=== PATIENT | male | born 1970 | race Caucasian/White ===

== ENCOUNTER → 2021-07-19 08:21 | Outpatient (CLI) | payer OTHER, SELFPAY ==
[2021-07-19 13:44] LABS: COVID19 -Nasal RAPID Negative (Negative)
== END ==
PROVIDERS: PCP Internal Medicine; Visit Provider Nurse Practitioner Family
DX: Z20.822 Contact with and (suspected) exposure to COVID-19 (principal); R05.9 Cough, unspecified
CPT/HCPCS: 87635

== ENCOUNTER → 2023-04-23 07:55 | Outpatient (CLI) | payer OTHER, SELFPAY ==
[2023-04-23 09:59] LABS: Alanine Aminotransferase 40 IU/L (<50); Albumin 4.4 g/dL (3.5-5.0); Albumin Globulin Ratio 1.4 (1.0-2.8); Alkaline Phosphatase 85 U/L (38-126); Aspartate Aminotransferase 30 IU/L (17-59); BUN Creatinine Ratio 12.1 (6-22); Bilirubin Total 0.8 mg/dL (0.2-1.3); Blood Urea Nitrogen 11 mg/dL (9-20); Calcium 9.7 mg/dL (8.4-10.2); Carbon Dioxide 26 mmol/L (22-32); Chloride 102 mmol/L (98-107); Cholesterol 174 mg/dL (140-199); Estimated Glomerular Filt Rate > 60 mL/min (>60); Globulin 3.2 g/dL (1.7-4.1); Glucose 94 mg/dL (70-100); HDL Cholesterol 39 mg/dL (40-60); HEMOLYSIS < 15 (0-50); LDL Cholesterol Calculated 100 mg/dL (<100); Potassium 4.4 mmol/L (3.4-5.1); Sodium 138 mmol/L (137-145); Total Protein 7.6 g/dL (6.3-8.2); Triglycerides 175 mg/dL (35-150)
== END ==
PROVIDERS: PCP Internal Medicine; Referring Provider Internal Medicine; Visit Provider Internal Medicine
DX: Z13.1 Encounter for screening for diabetes mellitus (principal); Z13.220 Encounter for screening for lipoid disorders; Z13.6 Encounter for screening for cardiovascular disorders
CPT/HCPCS: 36415; 80053; 80061

== ENCOUNTER 2023-06-25 08:04 | Day surgery (SDC) | payer OTHER, SELFPAY ==
[2023-06-25] MEDS: LACTATED RINGERS 1,000 ML 42 ML IV (08:48)
[2023-06-25 08:56] VITALS: BP 157/94; PULSE 60; RESP 16; TEMP 36.1; O2SAT 99
--- NOTE | 2023-06-25 09:15 | P.HP_ITS ---
History of Present Illness History of Present Illness Date Patient Seen: 06/25/23 Time Patient Seen: 09:15 Chief [place] [facility] [place]: 52-year-old man here for screening colonoscopy. No prior colonoscopy. No particular abdominal concerns today including new abdominal pain unintentional weight loss. Perhaps a couple of times per year he notices a small amount of blood after wiping. No family history of intestinal malignancy. [facility] Medical History Depression (~2015) Generalized anxiety disorder Surgical History Anesthesia S/P left inguinal hernia repair (~04/2010) Family History Father Cancer Mother Multiple sclerosis Brother Cancer Social History household members: spouse Smoking Status: Never smoker alcohol intake: current Meds Home Medications and Allergies Home Medications Medication Instructions Recorded Confirmed Type escitalopram oxalate 10 mg tablet 15 mg (1.5 x 10 mg) PO DAILY #135 09/13/22 06/25/23 Rx tabs Allergies Allergy/AdvReac Type Severity Reaction Status Date / Time No Known Drug Allergies Allergy Verified 06/25/23 08:35 Exam Vital Signs (past 8 hours): - 06/25/23 08:56 Temperature 97 F L Pulse Rate 60 Respiratory Rate 16 Blood Pressure 157/94 H Pulse Oximetry 99 Oxygen Delivery Method Room Air Oxygen Delivery Method Room Air Narrative Exam Narrative: General adult man alert oriented no acute distress Chest nonlabored respiration Extremities warm well perfused Assessment & Plan Assessment & Plan narrative: The patient requires colorectal screening and colonoscopy is recommended. Te chnical details were discussed. Risks, benefits, alternatives explained. Risks including but not limited to myocardial infarction, aspiration, bleeding, pain, missed lesion, incomplete examination, need for further radiographic studies, colonic perforation, and need for major abdominal surgery were discussed. All questions were answered to their satisfaction, and they are in agreement with this plan.
--- NOTE | 2023-06-25 09:19 | P.OP.COLON_ITS ---
Operative Date/Time/Diagnoses Date of procedure: 06/25/23 Time of procedure: 09:19 Pre-op diagnosis: Colorectal screening Procedure & Clinicians Study performed: Colonoscopy Same procedure as scheduled: Yes Indications: Colorectal screening Surgeon: Jose De Jesus Arrington Procedure Notes Procedure in detail: The history and physical was performed/updated and the patient is ASA class is 2. The procedure was discussed in detail with the patient. Potential risks complications including infection, bleeding, missed diagnosis, perforation, need for surgery, and were explained. Their questions were answered and informed consent was obtained. Patient was brought to the procedure room and placed standard monitoring equipment. The patient's vital signs were monitored continuously throughout the entire procedure. Prior to starting time-out was performed. The patient was placed in the left lateral recumbent position. Procedural sedation was administered by anesthesia. Examination began with a thorough inspection of the perianal area there was no evidence of fissures, fistulae, external hemorrhoids or cutaneous malignancy. The colonoscopy scope was then placed into the anal canal and was advanced to the cecum, which was identified by the ileocecal valve , the appendiceal orifice and the confluence of the taenia. The scope was then slowly withdrawn examining colon thoroughly in all directions, irrigating it of any residual stool. The scope was retroflexed within the rectum The patient tolerated the procedure well. They will be discharged once criteria are met. The prep was of good/excellent quality. The withdrawl time was 7 minutes. FINDINGS * Unremarkable colonoscopy. No masses, polyps, inflammation. * Internal hemorrhoids grade 1 Specimen(s): none sent Impression: Normal colonoscopy Post-procedure Recommendations: Colonoscopy in 10 years and High fiber diet Disposition: same day surgery
[2023-06-25 09:38] VITALS: BP 100/65; PULSE 72; RESP 11; TEMP 36.8; O2SAT 95
[2023-06-25 09:44] VITALS: BP 98/64; PULSE 68; RESP 13; O2SAT 95
[2023-06-25 09:49] VITALS: BP 97/65; PULSE 70; RESP 15; TEMP 36.3; O2SAT 97
[2023-06-25 09:56] VITALS: BP 118/83; PULSE 68; RESP 13; TEMP 36.5; O2SAT 95
== END 2023-06-25 10:11 | disposition home or self-care (01) ==
PROVIDERS: PCP Internal Medicine; Referring Provider Surgery; Visit Provider Surgery
PROC: 0DJD8ZZ Inspection of Lower Intestinal Tract, Via Natural or Artificial Opening Endoscopic (ICD-10-PCS; CPT 45378; principal; 2023-06-25 09:15)
DX: Z12.11 Encounter for screening for malignant neoplasm of colon (principal); K64.0 First degree hemorrhoids
CPT/HCPCS: 45378; J2704

== ENCOUNTER → 2025-06-15 09:19 | Outpatient (CLI) | payer OTHER, SELFPAY ==
--- NOTE | 2025-06-15 09:24 | DI.RAD.S_ITS ---
PROCEDURE: XR LUMBAR SPINE MIN 4V INDICATIONS: BACK PAIN TECHNIQUE: 5 views of the lumbar spine were acquired, including bilateral oblique views. COMPARISON: None. FINDINGS: Bones: 5 nonrib-bearing vertebrae are present. There is normal bony alignment. No vertebral body compression fractures. No suspicious bony lesions. Mild degenerative disc changes throughout the lumbar spine. Mild L3-L4, L4-L5 and L5-S1 facet hypertrophy. Soft tissues: Overlying bowel gas pattern is normal. No suspicious soft tissue calcifications. Oblique images: No pars defects. IMPRESSION: Mild multilevel degenerative disc disease. Mild multilevel facet arthropathy. No fracture. No acute osseous lesion. If symptoms and/or clinical suspicion for pathology persists, evaluation with MRI should be considered for further assessment. Dictated by: Melissa Mobley MD, PhD on 06/15/2025 at 10:16 Approved by: Melissa Mobley MD, PhD on 06/15/2025 at 10:17
== END ==
PROVIDERS: PCP Internal Medicine; Referring Provider Internal Medicine; Visit Provider Physical Medicine & Rehabilitation
DX: M51.369 Other intervertebral disc degeneration, lumbar region without mention of lumbar back pain or lower extremity pain (principal); M47.816 Spondylosis without myelopathy or radiculopathy, lumbar region; M47.817 Spondylosis without myelopathy or radiculopathy, lumbosacral region; M54.9 Dorsalgia, unspecified
CPT/HCPCS: 72110